=== PATIENT | female | born 1965 | race Caucasian/White ===

== ENCOUNTER 2018-02-03 17:13 | Emergency (ER) | payer OTHER ==
[~2018-02-03] VITALS: Ht 162.6 cm; Wt 91.0 kg
[~2018-02-03 17:13] MED LIST: BIOTIN10000 MC1 PO; CALCIUM PLUS M1 EAC1 PO; CYANOCOBALAM1000 MCG PO; MIRALAX119 GM PO; SLOW RELEASE I250 MG PO; SYNTHROID100 MCG PO; WOMEN'S DAILY1 EACH PO
[2018-02-03 18:00] LABS: APPEARANCE CLOUDY ((CLEAR)); BILIRUBIN NEGATIVE; BLOOD LARGE; COLOR YELLOW ((YELLOW)); GLUCOSE (STRIP) NEGATIVE; KETONES 20; LEUKOCYTES MODERATE; NITRITE NEGATIVE; PROTEIN (STRIP) 100; SPECIFIC GRAVITY 1.026 (1.000-1.030)
[2018-02-03 18:07] LABS: BACTERIA RARE /HPF; EPITHELIAL CELLS 4+ /HPF; MUCUS 1+ /LPF; RED BLOOD CELLS TNTC /HPF (0-5); UCUL ADDED? YES
[2018-02-03 18:10] LABS: HEMATOCRIT 41.7 % (36.0-46.0); HEMOGLOBIN 14.2 G/DL (11.9-15.5); MCHC 34.1 G/DL (30.0-36.0); RBC DIS.WIDTH-CV 12.4 % (11.8-14.6); RBC DIS.WIDTH-SD 41.5 % (39-53); RED BLOOD COUNT 4.58 M/uL (3.80-5.20); WHITE BLOOD COUNT 9.1 K/uL (4.1-10.2)
[2018-02-03 18:12] LABS: CHLORIDE 104 mEq/L (99-109); POTASSIUM 4.1 mEq/L (3.7-5.4); SODIUM 140 mEq/L (136-147)
[2018-02-03 18:14] LABS: GLUCOSE 128 mg/dL (70-99)
[2018-02-03 18:18] LABS: GFR ESTIMATE (CALCULATED) > 59 mL/min/; UREA NITROGEN (BUN) 19 mg/dL (9-23)
[2018-02-03 18:26] LABS: QUANTITATIVE HCG < 4.0 MIU/ML
[2018-02-03 19:10] LABS: PLAT.SUFFICIENCY ADEQUATE; PLATELET COUNT 228 K/uL (156-360)
[2018-02-03] MEDS ORDERED: MOTRIN800 MG PO (19:58)
[2018-02-03] MEDS ORDERED: PERCOCET 5/31 TABLET PO (19:58)
[2018-02-03] MEDS ORDERED: ZOFRAN4 MG PO (19:58)
[2018-02-03 21:02] VITALS: BP 121/73
== END 2018-02-03 21:05 | disposition home or self-care (01) ==
LOC: EME 17:13
PROVIDERS: Nurse Practitioner Family
DX: N20.1 Calculus of ureter (principal); R11.2 Nausea with vomiting, unspecified
CPT/HCPCS: 74176; 80048; 81003; 84702; 85027; 87086; 99281; 99284; J0780; J1885; J2405; J3010; J7030